=== PATIENT | female | born 1975 | race Two or more races ===

== ENCOUNTER 2020-01-18 06:36 | Day surgery (SDC) | payer OTHER | END 2020-01-18 20:35 | disposition home or self-care (01) | LOC: CIR.AMB 06:36 | PROVIDERS: ATTEND Obstetrics & Gynecology | DX: N84.0 Polyp of corpus uteri (principal); Z20.828 Contact with and (suspected) exposure to other viral communicable diseases ==

== ENCOUNTER 2024-02-24 06:20 | Day surgery (SDC) | payer OTHER ==
[2024-02-19 09:47] LABS: HEMATOCRIT 37.6 % (36.0-45.00); HEMOGLOBIN 12.7 g/dL (12.0-15.00); MEAN CELL VOLUME 89.4 fL (80.00-100.00); MEAN CORPUSCULAR HEMOGLOBIN 30.3 pg (27.00-32.0); MEAN CORPUSCULAR HGB CONC 33.8 g/dl (32.0-36.0); PLATELET COUNT 240 K/uL (150-450)
[2024-02-19 09:48] LABS: PH,URINE 6.5 (5.0-8.0); URINE APPEARANCE Clear; URINE BACTERIA 447.1 uL (0.0-1933); URINE BILIRRUBIN Negative (NEGATIVE); URINE BLOOD Negative; URINE COLOR Yellow; URINE EPITHELIAL CELLS 8.1 uL (0.0-38.8); URINE GLUCOSE Negative (NEGATIVE); URINE KETONE Negative (NEGATIVE); URINE LEUKOCYTE Negative; URINE NITRATE Negative; URINE PROTEIN Negative (NEGATIVE); URINE RBC 14.5 uL (0.0-20.8); URINE UROBILINOGEN 0.2 E.U./dl; URINE WBC 5.6 uL (0.0-23.2)
[2024-02-19 10:16] VITALS: BP 113/75
[2024-02-19 10:20] LABS: INR 1.04; PARTIAL THROMBOPLASTIN TIME 26.6 SECONDS (22.0-34.0); PROTHROMBIN TIME 11.3 SECONDS (9.0-11.5)
[2024-02-19 10:21] LABS: URINE CAST 0.15 uL (0.0-1.40)
[2024-02-19 10:37] LABS: ALBUMIN 3.9 gm/dL (3.4-5.0); BILIRUBIN TOTAL 0.35 mg/dL (0.3-1.2); CREATININE SERUM 0.58 mg/dL (0.55-1.02); GFR 110.96; GLOBULINA 3.3 G/DL (2.4-3.5); POTASSIUM 4.21 mEq/L (3.5-5.1); TOTAL PROTEIN 7.2 gm/dL (6.4-8.2)
[~2024-02-24] VITALS: Ht 157.5 cm; Wt 61.7 kg
[2024-02-24] MEDS ORDERED: KETOROLAC TROMETHAMINE 30 MG VIAL IU ONE (09:15)
[2024-02-24] MEDS ORDERED: ONDANSETRON HCL 2 MG/ML VIAL IV ONE (09:15)
[2024-02-24] MEDS ORDERED: CEFOXITIN SODIUM 2,000 MG VIAL IV SCH (11:45)
[2024-02-24] MEDS ORDERED: POVIDONE-IODINE 118 ML BOTT TOP ONE (11:45)
== END 2024-02-24 15:20 | disposition home or self-care (01) ==
LOC: CIR.AMB 06:20
PROVIDERS: ATTEND Obstetrics & Gynecology
DX: N84.0 Polyp of corpus uteri (principal); N93.8 Other specified abnormal uterine and vaginal bleeding; Z91.013 Allergy to seafood